=== PATIENT | male | born 2005 | race Caucasian/White ===

== ENCOUNTER 2024-08-14 12:50 | Emergency (ER) | payer OTHER ==
[~2024-08-14] VITALS: Ht 182.9 cm; Wt 87.0 kg
[2024-08-14 13:03] VITALS: TEMP 97.9; O2SAT 100
[2024-08-14] MEDS ORDERED: IBUP-2028 MT (18:13)
[2024-08-14 18:20] VITALS: BP 118/74; PULSE 72; RESP 18; O2SAT 99
== END 2024-08-14 18:23 | disposition home or self-care (01) ==
LOC: ER 12:50
DX: S46.211A Strain of muscle, fascia and tendon of other parts of biceps, right arm, initial encounter (principal); J45.909 Unspecified asthma, uncomplicated; X58.XXXA Exposure to other specified factors, initial encounter; Y93.64 Activity, baseball; Y92.89 Other specified places as the place of occurrence of the external cause; Y99.8 Other external cause status
CPT/HCPCS: 93971; 99284